=== PATIENT | male | born 1990 | race Caucasian/White ===

== ENCOUNTER 2017-06-08 06:49 | Emergency (ER) | payer OTHER ==
--- NOTE | 2017-06-08 07:21 | ED Physician Documentation ---
History of Present Illness - Stated complaint Stated Complaint: ANKLE INJURY - Chief complaint Chief Complaint: Ext Problem - History obtained from History obtained from: Patient - History of Present Illness Timing: Prior to arrival - Additonal information Additional information: Patient is a healthy young male who sustained a injury this morning while playing basketball. While playing he believes he rolled his left ankle and felt a sharp pain on the lateral aspect of the affected left side. He denies hearing any pop or crack. He still ambulatory on the ankle however the pain is increased with ambulation and decreased with rest and elevation. He has no pain or injury proximal to the ankle and there is no medial pain noted. He denies any injury or pain to the hindfoot, midfoot, or forefoot of the affected left side. He is otherwise healthy and has no other complaints or injuries. Review of systems: For pertinent positive and negatives in the review of systems please see the history of present illness, otherwise all other systems have been reviewed and are negative. Dragon disclaimer: Parts of this medical record were created using voice recognition technology. Because of the inherent limitations of this system, occasional same sounding word substitutions do occur and persist despite proofreading. Please read the document for context. Review of Systems Musculoskeletal: reports: Extremity pain, Joint pain, Extremity swelling, Joint swelling PD PAST MEDICAL HISTORY - Past Medical History Past Medical History: No - Past Surgical History Past Surgical History: No - Present Medications Home Medications: Ambulatory Orders Medication Instructions Recorded Confirmed HYDROcod/ACETAM 5/325 [[place] 5/325] 1 - 2 ea PO Q6H PRN #15 tablet 04/21/16 Ibuprofen 600 mg PO TID PRN #14 tablet 06/08/17 Tramadol HCl 50 mg PO Q8HR PRN #14 tablet 06/08/17 - Allergies Allergies/Adverse Reactions: Allergies Allergy/AdvReac Type Severity Reaction Status Date / Time No Known Drug Allergies Allergy Verified 06/08/17 07:04 - Social History Does the pt smoke?: No Smoking Status: Never smoker Does the pt drink ETOH?: No Does the pt have substance abuse?: No - Immunizations Immunizations are current?: Yes PD ED PE NORMAL - Vitals Vital signs reviewed: Yes - General General: Alert and oriented X 3, No acute distress, Well developed/nourished - Extremities Extremities: Other (On examination there is moderate swelling laterally over the malleolus. There is no medial tenderness or discoloration. There is no proximal ankle pain or tenderness. There is no hindfoot, midfoot or forefoot tenderness. The Achilles tendon is intact. There is tenderness and swelling over the lateral malleolus that is moderate) Results - Vitals Vitals: Vital Signs - 24 hr 06/08/17 07:00 Temperature 36.5 C Heart Rate 95 Respiratory 18 Rate Blood Pressure 127/51 L O2 Saturation 97 Oxygen O2 Source Room air PD MEDICAL DECISION MAKING - ED course Complexity details: reviewed old records, reviewed results, re-evaluated patient , d/w patient ED course: On examination he has moderate swelling over the last lateral malleolus. The rest of the foot and ankle are normal. Radiographically he has moderate soft tissue swelling and there is a question of a very small avulsion fracture at the distal fibula. For comfort primarily he was placed in the posterior fiberglass mold. He was issued crutches and will be given a small amount of pain medication. Recommending that he try and stay nonweightbearing on this for the next couple days follow-up with orthopedics. I expect he will probably be placed in a walking boot in the near future. Disposition: To home Clinical impression: 1. Left lateral malleolar soft tissue swelling with talofibular ligamentous strain 2. Small avulsion fracture distal fibula Departure - Departure Disposition: 01 Home, Self Care Clinical Impression: Closed avulsion fracture of ankle Qualifiers: Encounter type: initial encounter Laterality: left Qualified Code(s): S82.892A - Other fracture of left lower leg, initial encounter for closed fracture Condition: Good Follow-Up: Renny Altamirano MD [Provider Admit Priv/Credential] - Prescriptions: Tramadol HCl 50 mg PO Q8HR PRN #14 tablet PRN Reason: Pain Ibuprofen 600 mg PO TID PRN #14 tablet PRN Reason: Pain
--- NOTE | 2017-06-08 07:42 | XRAY Preliminary Report ---
Exam: XR Ankle 3 View LT IMPRESSION: 1. Prominent lateral soft tissue swelling. 2. Possible nondisplaced avulsion fracture at the inferior tip of the lateral malleolus. [facility] SITE ID: [id number]
--- NOTE | 2017-06-08 07:45 | XRAY Report ---
EXAM: LEFT ANKLE RADIOGRAPHY EXAM DATE: 06/08/2017 07:28 AM. CLINICAL HISTORY: Injury playing basketball. COMPARISON: None. TECHNIQUE: 3 views. FINDINGS: Bones: Bone appears demineralized at the tip of the lateral malleolus. Possible small avulsion fractu re at the inferior tip of the lateral malleolus. Ankle mortise otherwise appears intact. Joints: Ankle mortise intact. Subtalar, talonavicular and calcaneocuboid joints appear normal. Soft Tissues: Pronounced lateral soft tissue swelling. IMPRESSION: 1. Prominent lateral soft tissue swelling. 2. Possible nondisplaced avulsion fracture at the inferior tip of the lateral malleolus. [facility] Referring Provider Line: [phone] SITE ID: [id number]
[2017-06-08 08:22] VITALS: BP 124/74
== END 2017-06-08 08:19 | disposition home or self-care (01) ==
LOC: ED 06:49
DX: S82.892A Other fracture of left lower leg, initial encounter for closed fracture (principal); X50.1XXA Overexertion from prolonged static or awkward postures, initial encounter; Y93.67 Activity, basketball
CPT/HCPCS: 99283